=== PATIENT | male | born 1960 | race Caucasian/White ===

== ENCOUNTER 2021-06-05 09:23 | Emergency (ER) | payer BC ==
[2021-06-05] MEDS ORDERED: Sodium Chloride 0.9% 1,000 ML IV SCH (10:00)
[2021-06-05] MEDS ORDERED: Ondansetron 4 MG/2 ML SDV IVPUSH ONE (11:22)
== END 2021-06-05 14:00 | disposition home or self-care (01) ==
LOC: JD.ED 09:23
DX: A08.4 Viral intestinal infection, unspecified (principal); Z79.899 Other long term (current) drug therapy; Z79.84 Long term (current) use of oral hypoglycemic drugs
CPT/HCPCS: 36415; 71045; 80053; 80306; 80307; 81003; 83605; 83735; 83880; 85025; 86140; 93005; 96374; 99284; J2405; J7030; 93010; 99285

== ENCOUNTER 2021-06-06 12:30 | Emergency (ER) | payer BC ==
[2021-06-06] MEDS ORDERED: Ondansetron 4 MG Tab.DIS PO ONE (12:54)
[2021-06-06 15:06] LABS: ACETAMINOPHEN 0 ug/mL (10-30)
== END 2021-06-06 18:08 ==
LOC: JD.ED 12:30
DX: R44.0 Auditory hallucinations (principal); I10 Essential (primary) hypertension; E03.9 Hypothyroidism, unspecified; E11.9 Type 2 diabetes mellitus without complications; Z88.8 Allergy status to other drugs, medicaments and biological substances; Z79.899 Other long term (current) drug therapy; Z79.84 Long term (current) use of oral hypoglycemic drugs; Z20.822 Contact with and (suspected) exposure to COVID-19
CPT/HCPCS: 36415; 70450; 70450-26; 80053; 80143; 80179; 80306; 80307; 84443; 85025; 99285; 99285-25; U0002